=== PATIENT | male | born 1990 | race African-American/Black ===

== ENCOUNTER 2019-09-18 20:26 | Emergency (ER) | payer SELFPAY ==
[~2019-09-18] VITALS: Ht 165.1 cm; Wt 86.0 kg
[2019-09-18] MEDS ORDERED: LIDOCAINE HCL/PF 1% 10 MG/ML 5ML VIAL IJ ONE (22:45)
[2019-09-18] MEDS ORDERED: HYDROCODONE/ACETAMINOPHEN 5/325MG TABLET PO ONE (23:15)
[2019-09-19 00:39] VITALS: BP 129/79
== END 2019-09-19 00:39 | disposition home or self-care (01) ==
LOC: ER 20:26
DX: L02.412 Cutaneous abscess of left axilla (principal)
CPT/HCPCS: 10060; 99283; J3490; Z7610

== ENCOUNTER 2019-09-21 01:24 | Emergency (ER) | payer SELFPAY ==
[~2019-09-21] VITALS: Ht 165.1 cm; Wt 87.0 kg
[2019-09-21 01:36] VITALS: BP 138/90
== END 2019-09-21 01:54 | disposition home or self-care (01) ==
LOC: ER 01:24
DX: Z48.00 Encounter for change or removal of nonsurgical wound dressing (principal)
CPT/HCPCS: 99283

== ENCOUNTER 2019-12-04 00:08 | Emergency (ER) | payer SELFPAY ==
[~2019-12-04] VITALS: Ht 165.1 cm; Wt 83.0 kg
[2019-12-04] MEDS ORDERED: LIDOCAINE HCL 1% 20ML VIAL (Pyxis) INJ INFIL ONE (02:45)
[2019-12-04] MEDS ORDERED: IBUPROFEN 600MG TABLET PO ONE (02:45)
[2019-12-04] MEDS ORDERED: CEPHALEXIN 250MG CAPSULE PO ONE (03:30)
[2019-12-04] MEDS ORDERED: SULFAMETHOXAZOLE/TRIMETHOPRIM 400/80MG TAB PO ONE (03:30)
[2019-12-04 05:18] VITALS: BP 146/82
== END 2019-12-04 05:24 | disposition home or self-care (01) ==
LOC: ER 01:08
DX: L02.412 Cutaneous abscess of left axilla (principal)
CPT/HCPCS: 10060; 99284; J3490